=== PATIENT | female | born 1960 | race Caucasian/White ===

== ENCOUNTER → 2017-11-05 | Outpatient (CLI) | payer BC ==
[~2017-11-05] MED LIST: ATOR40TA70 PO; CHOL500061 PO; CIPR500T78 PO; CYAN250010 PO; FLUO40CA12 PO; LISI-552 PO; LYSI100014 PO; SITA1TBM7 PO; TURM538C PO
--- NOTE | 2017-11-06 10:24 | Diagnostic Imaging Report ---
EXAMINATION: Bilateral screening mammogram 2D views with tomosynthesis. The current study was also evaluated with a Computer Aided Detection (CAD) system. INDICATION: Screening. PERSONAL HISTORY: No current complaints stated on the questionnaire. COMPARISON: 07/21/2012. FINDINGS: The breasts are composed of scattered fibroglandular densities. There is no mass, architectural distortion, or suspicious cluster of calcifications seen. Allowing for technique and positional differences, no suspicious change is seen. IMPRESSION: No significant change. ACR BI-RADS Category 2: Benign findings. Result letter will be mailed to the patient. Note: At least 10% of breast cancer is not imaged by mammography. Dictated by: Dictated on workstation # [id number]
== END ==
LOC: RAD 13:28
PROVIDERS: ATTEND Family Medicine
DX: Z12.31 Encounter for screening mammogram for malignant neoplasm of breast (principal)
CPT/HCPCS: 77067

== ENCOUNTER 2017-11-06 05:32 | Outpatient (CLI) | payer BC ==
[~2017-11-06] VITALS: Ht 167.6 cm; Wt 127.0 kg
[~2017-11-06 05:32] MED LIST changes: -ATOR40TA70 PO; -CHOL500061 PO; -CYAN250010 PO; -FLUO40CA12 PO; -LISI-552 PO; -LYSI100014 PO; -SITA1TBM7 PO; -TURM538C PO
[2017-11-06] MEDS ORDERED: FLUO40CA12 PO (12:58)
[2017-11-06] MEDS ORDERED: CYAN250010 PO (12:58)
[2017-11-06] MEDS ORDERED: LISI-552 PO (12:58)
[2017-11-06] MEDS ORDERED: CHOL500061 PO (12:58)
[2017-11-06] MEDS ORDERED: TURM538C PO (12:58)
[2017-11-06] MEDS ORDERED: ATOR40TA70 PO (12:58)
[2017-11-06] MEDS ORDERED: LYSI100014 PO (12:58)
[2017-11-06] MEDS ORDERED: SITA1TBM7 PO (12:58)
== END 2017-11-06 13:02 ==
LOC: PREOP 05:32
PROVIDERS: ATTEND Surgery
DX: Z01.818 Encounter for other preprocedural examination (principal); Z12.11 Encounter for screening for malignant neoplasm of colon; Z80.0 Family history of malignant neoplasm of digestive organs

== ENCOUNTER 2017-11-13 09:53 | Day surgery (SDC) | payer BC ==
[~2017-11-13] VITALS: Ht 167.6 cm; Wt 127.0 kg
[~2017-11-13 09:53] MED LIST changes: +ATOR40TA70 PO; +CHOL500061 PO; +CYAN250010 PO; +FLUO40CA12 PO; +LISI-552 PO; +LYSI100014 PO; +SITA1TBM7 PO; +TURM538C PO
[2017-11-13 10:00] VITALS: BP 112/76
[2017-11-13] MEDS ORDERED: NS IV 500 ML 500 ML ONE (10:12)
[2017-11-13] MEDS ORDERED: NS IV 500 ML 500 ML IV PRN (10:27)
--- NOTE | 2017-11-13 10:29 | Conscious Sedation/ASA ---
Conscious Sedation Pre-Proced Time Reviewed: 10:15 ASA Class: 2 Airway Mallampati Classification: (cabazon appropriate class) I. II. III, IV Lungs Heart ASA score ASA 1: a normal healthy patient ASA 2: a patient with a mild systemic disease (mid diabetes, controlled hypertension, obesity ASA 3: a patient with a severe systemic disease that limits activity (angina , COPD, prior Myocardial infarction) ASA 4: a patient with an incapacitating disease that is a constant threat to life (CHF, renal failure) ASA 5: a moribund patient not expected to survive 24 hrs. (ruptured aneurysm) ASA 6: a declared brain patient whose organs are being harvested. For emergent operations, add the letter E after the classification Grade 2 Sedation Plan: Analgesia, Amnesia, Plan communicated to team members, Discussed options with patient/fam, Discussed risks with patient/fam Note The patient is an appropriate candidate to undergo the planned procedure, sedation, and anesthesia. The patient immediately re-assessed prior to indication. JENIFER ALLEN MD Nov 13, 2017 10:29 am
[2017-11-13] MEDS ORDERED: ACETAMINOPHEN 325 MG TABLET/CAPLET (TYLENOL) PO PRN (10:30)
[2017-11-13] MEDS: fentaNYL INJECTION 100 MCG/2 ML AMP IVP PRN ×4 (10:30→11:20)
[2017-11-13] MEDS ORDERED: LIDOCAINE JELLY 2% (XYLOCAINE) 5 ML TUBE MM PRN (10:30)
[2017-11-13] MEDS ORDERED: HYDROcodone/APAP 5 MG/325 MG (LORTAB) TAB PO PRN (10:30)
[2017-11-13] MEDS ORDERED: ONDANSETRON 4 MG/2 ML (SDV) Z0FRAN IV PRN (10:30)
[2017-11-13] MEDS ORDERED: morphine INJ 10 MG/ML 1ML (SYR OR VIAL) IV PRN (10:30)
--- NOTE | 2017-11-13 10:30 | Progress Note-Pre Operative ---
Pre-Operative Progress Note H&P Reviewed The H&P was reviewed, patient examined and no changes noted. Date Seen by Provider: Nov 13, 2017 Time Seen by Provider: 10:15 Date H&P Reviewed: Nov 13, 2017 Time H&P Reviewed: 10:15 Pre-Operative Diagnosis: family hx colon ca JENIFER ALLEN MD Nov 13, 2017 10:30 am
[2017-11-13] MEDS ORDERED: fentaNYL INJECTION 100 MCG/2 ML AMP ONE ×2 (10:59→11:22)
[2017-11-13] MEDS ORDERED: MIDAZOLAM 2 MG/2 ML (VERSED) VIAL ONE ×5 (10:59→11:26)
[2017-11-13] MEDS ORDERED: LIDOCAINE JELLY 2% (XYLOCAINE) 5 ML TUBE ONE (11:00)
[2017-11-13] MEDS: MIDAZOLAM 2 MG/2 ML (VERSED) VIAL IVP PRN ×5 (11:00→11:35)
[2017-11-13] MEDS ORDERED: ONDANSETRON 4 MG/2 ML (SDV) Z0FRAN ONE (11:39)
--- NOTE | 2017-11-13 11:48 | Progress Note-Post Operative ---
Post-Operative Progess Note Surgeon (s)/Sounding Device Operator (s) Surgeon JENIFER ALLEN MD Sounding Device Operator: none Pre-Operative Diagnosis family hx colon ca Post-Operative Diagnosis chronic stage 1 ext and int hemorrhoids. Procedure & Operative Findings Date of Procedure 11/13/17 Procedure Performed/Findings Colonoscopy. Anesthesia Type CS Estimated Blood Loss Estimated blood loss (mL): minimal Specimens/Packing Specimens Removed none JENIFER ALLEN MD Nov 13, 2017 11:48 am
--- NOTE | 2017-11-13 11:49 | Discharge Inst-Surgical ---
D/C Lap Instructions-TIFFANY Follow Up 5 yrs Activity as tolerated High Fiber Diet 25g or more per day Avoid Alcohol, Caffeine, Spicy [place] and Acid foods. Drink 64 fluid oz or more of fluids per day. Symptoms to Report: Fever over 101 degree F, Nausea/Vomiting If any problems/questions: Contact your physician or go to Emergency Room JENIFER ALLEN MD Nov 13, 2017 11:49 am
[2017-11-13 12:00] VITALS: BP 109/59
[2017-11-13 12:30] VITALS: BP 106/64
[2017-11-13 12:40] VITALS: BP 106/64
--- NOTE | 2017-11-13 20:43 | OPERATIVE REPORT ---
DATE OF SERVICE: 11/13/2017 ATTENDING PHYSICIAN: Dr. Ninfa Carter. PREOPERATIVE DIAGNOSIS: Family history of colon cancer. POSTOPERATIVE DIAGNOSIS: Chronic stage I external and internal hemorrhoids. The remainder of the rectum and colon were normal. PROCEDURE: Colonoscopy. SURGEON: Dr. Allen. ANESTHESIA: Conscious sedation. ESTIMATED BLOOD LOSS: Minimal. FINDINGS: Chronic stage I external and internal hemorrhoids. The remainder of the rectum and colon were normal. There were no polyps identified. DISPOSITION: The patient tolerated the procedure well. The patient local is a 57-year-old female in need of a follow up screening colonoscopy. Her last colonoscopy was in 2009 and she believes that to be normal. She does state a family history of colon cancer with her father being diagnosed with the disease. Her mother also had a history of pancreatic cancer. She states for the most part she is doing well with no major issues with diarrhea nor constipation as well as no red blood per rectum or any dark tarry stools. DESCRIPTION OF PROCEDURE: The patient was brought to the endoscopy suite, laid in the left lateral decubitus position. After adequate IV pain and sedating medications and conscious sedation anesthesia, a digital rectal examination was performed. Mild chronic stage I external and internal hemorrhoids were identified which were not actively edematous nor inflamed and no bleeding. Normal sphincter tone was felt and there were no palpable masses. The endoscope was then intubated to the anus and rectum and gently insufflated. The endoscope was then advanced through the valves of Caraballo and the rectum with no polyps or any neoplasms identified. The endoscope was then advanced through the sigmoid colon where no diverticulosis identified. We then advanced to the remainder of the descending, transverse and ascending colon to the cecum. These segments were normal. There were no polyps or any neoplasms identified throughout the colon or rectum. The endoscope was then slowly withdrawn when taking a second look and suctioning of residual air with no additional findings. The patient tolerated the procedure well. We will recommend continued medical management with a high fiber diet with at least 25 to 30 grams of fiber per day as well as at least 64 fluid ounces of water daily to promote soft stools on a daily basis. We will recommend a followup colonoscopy in 5 years. Job ID: [id number] DocumentID: [id number] Dictated Date: 11/13/2017 11:45:43 Windows Desktop Support Date: 11/13/2017 20:42:11 Dictated By: JENIFER ALLEN MD
--- OUTSIDE RECORDS SUMMARY | 2017-11-14 09:30 | XMS REPORT | Encounter Summary ---
Author Author [facility] Organization [facility] Address Unknown Phone Unavailable Care Team Providers Care Bench Assembler Battery Name Role Phone PCP Unavailable Reason for Visit * Reason Comments Ear Evaluation * Consult, Test & Treat (Routine) Status Reason Specialty Diagnoses / Referred By Referred To Procedures Contact Contact Authorized Otolaryngology Diagnoses Jameson Carter Keith A, MD Pressure in MD Ninfa [address] Ears, Hearing [address] [place] [address] rocedures [id number] Phone: NEW PATIENT [phone] Encounter Details Date Type Department Care Team Description 10/09/2017 Office Visit [facility] Selvin Barba MD Dysfunction of right Physicians - ENT [address] eustachian tube (Primary [address] Dx);Otitic barotrauma, [place] [address] [place] [address] initial encounter [phone] Social History Tobacco Use Types Packs/Day Years Used Date Former Smoker Cigarettes Quit: 10/09/1998 Smokeless Tobacco: Never Used Alcohol Use Drinks/Week oz/Week Comments Yes Sex Assigned at Date Recorded Not on file as of this encounter Last Filed Vital Signs Vital Sign Reading Time Taken Blood Pressure - - Pulse - - Temperature - - Respiratory Rate - - Oxygen Saturation - - Inhaled Oxygen - - Concentration Weight 124.7 kg (275 lb) 10/09/2017 3:09 PM 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 Height 170.2 cm (5' 7") 10/09/2017 3:09 PM LINING MECHANIC Body Mass Index 43.07 10/09/2017 3:09 PM LINING MECHANIC in this encounter Functional Status Functional Status Response Date of Assessment Does the patient have a hearing impairment: No 10/22/2016 Does the patient have a visual impairment: Yes 10/22/2016 Does the patient have impaired ambulation: No 10/22/2016 Does the patient have an activity of daily living No 10/22/2016 (ADL) impairment: Does the patient have an instrumental activity of No 10/22/2016 daily living (IADL) impairment: Cognitive Status Response Date of Assessment Does the patient have a cognitive impairment: No 10/22/2016 as of this encounter Instructions * Patient Instructions - Selvin Barba MD - 10/09/2017 3:15 PM LINING MECHANIC Should your symptoms persist after another 2-3 months, please contact our office for a visit with our neuro-otology team: Dr. Shaun Blanchard in this encounter Progress Notes * Selvin Barba MD - 10/09/2017 3:15 PM LINING MECHANIC Formatting of this note may be different from the original. Date of Service: 10/09/2017 Subjective: Мария Bliss is a 57 y.o. female. History of Present Illness In May drove to top of [email or web address] peak then back down and developed right ear pain and pressure and fever. Had oral prednisone and augmentin. Then cefdinir. Then a prednisone shot. Then another round of oral prednisone. She still has tinnitus and some difficulty hearing from her right ear. She went to her local ENT who recommended tubes. She has occasional crackling when blowing nose. She took sudafed for a flight and her ears were very crackly. She can pop both ears. Denies prior ear surgery/ infections. At outside ENT office they looked into back of nose and said it looks good. She tried valsalva, steroid sprays, zyrtec for ETD. Helped somewhat, but not completely back to baseline. 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 Мария Bliss has a past medical history of Arthritis; Cancer ( HCC); DM (diabetes mellitus) (HCC); Generalized headaches; High cholesterol; Hypertension; Hyperthyroidism; Seasonal allergic reaction; Sleep apnea (CPAP); and Tobacco abuse. She has a past surgical history that includes hysterectomy (2006); section (2002); sinus surgery (2012); tonsillectomy (1974); arthrs knee w/ meniscectomy med&lat w/shaving (Right, 08/30/2016) (right knee arthroscopy, partial lateral menisectomy, and chondroplasty. performed by Miguel Angel Samuel MD at [facility]IOP); and adenoidectomy (1973). Мария's family history includes Allergy-severe in her son; Asthma in her sister and son; Diabetes in her father; Hearing Loss in her father; High Cholesterol in her father; Hypertension in her mother. Social History Substance Use Topics Smoking status: Former Smoker Types: Cigarettes Quit date: 10/09/1998 Smokeless tobacco: Never Used Alcohol use Yes No Known Allergies Review of Systems Constitutional: Negative. HENT: Positive for postnasal drip, rhinorrhea, sinus pressure and tinnitus. Eyes: Positive for itching. Respiratory: Positive for apnea. Cardiovascular: Negative. Gastrointestinal: Negative. Endocrine: Negative. Genitourinary: Negative. Musculoskeletal: Positive for arthralgias, gait problem and joint swelling. Skin: Negative. Allergic/Immunologic: Negative. Hematological: Negative. Psychiatric/Behavioral: Negative. Objective: atorvastatin (LIPITOR) 40 mg tablet Take 40 mg by mouth daily. cholecalciferol (VITAMIN D-3) 400 unit tab Take 400 Units by mouth daily. cyanocobalamin(+) (VITAMIN B-12) 100 mcg tablet Take 100 mcg by mouth daily. FLUoxetine (PROZAC) 20 mg capsule Take 20 mg by mouth daily. lisinopril (PRINIVIL; ZESTRIL) 10 mg tablet Take 10 mg by mouth daily. Lysine (L-LYSINE) 500 mg cap Take 500 mg by mouth daily. turmeric root extract 500 mg cap Take 500 mg by mouth daily. Vitals: 10/09/17 1509 Weight: 124.7 kg (275 lb) Height: 170.2 cm (67") Body mass index is 43.07 kg/(m^2). Physical Exam General appearance: Мария is in no distress and is alert and oriented. Communication ability: communicates by voice, normal quality Inspection: normocephalic, no scars, lesions, or masses External ear: normal, no lesions or deformities Otoscopic: canals clear, tympanic membranes intact, no fluid- able to move both ear drums with valsalva Hearing: grossly intact Lips/teeth/gums: normal dentition, no gingival inflammation, no lip lesions Oropharynx: tongue normal, posterior pharynx without erythema or exudate Pharynx wall/sinus: no saliva pooling, asymmetry, or lesions Neck: supple, no masses, trachea midline. No cervical adenopathy, thyromegaly, or parotid masses. External nose: normal, no lesions or deformities Nasal: mucosa, septum, and turbinates normal Eyes: Extraocular motion is normal. No diplopia. Pupils are equal and reactive. Cranial nerves II-XII are intact. AD- type As or B tymp and 5-15 db ABG resulting in a mild conductive loss. - normal PTAs and WRS excellent AU. Harrison to right; Rinner air > bone AU Assessment and Plan: 57 yo female with eustachian tube dysfunction and otologic barotrauma. She is still slowly improving since her initial insult and we would recommend not putting in tube today as she does not have fluid and continues to improve. We would like her to continue ETD therapy and follow up in 4 months if symptoms persist or sooner if needed. ATTESTATION I personally performed the hercules portions of the E/M visit, discussed case with resident and concur with resident documentation of history, physical exam, assessment, and treatment plan unless otherwise noted. Staff name: Selvin Barba MD Date: 10/16/2017 in this encounter Plan of Treatment Not on fileas of this encounter Visit Diagnoses Diagnosis Dysfunction of right eustachian tube - Primary Dysfunction of Eustachian tube Otitic barotrauma, initial encounter in this encounter
--- OUTSIDE RECORDS SUMMARY | 2017-11-14 09:30 | XMS REPORT | Encounter Summary ---
Author Author [facility] Organization [facility] Address Unknown Phone Unavailable Care Team Providers Care Sales Agent Food Vending Service Name Role Phone PCP Unavailable Reason for Visit * Reason Comments Ear Evaluation * Consult, Test & Treat (Routine) Status Reason Specialty Diagnoses / Referred By Referred To Procedures Contact Contact Authorized Otolaryngology Diagnoses Geoffrey Carter Becky, Jenae in MD NALDO Ocasio Ears, Hearing [address] Loss [facility] [address] [place], [place] rocedures [id number] AUDIO TESTING Phone: Phone: PATIENT [phone] Fax: Encounter Details Date Type Department Care Team Description 10/09/2017 Clinical [facility] Mariel Hale AUD Conductive hearing loss Support Physicians - ENT [address] of right ear with [address] E[address] CLINIC [address] [place] [address] [place] [address] left ear [phone] Social History Tobacco Use Types Packs/Day Years Used Date Former Smoker Cigarettes Quit: 10/09/1998 Smokeless Tobacco: Never Used Alcohol Use Drinks/Week oz/Week Comments Yes Sex Assigned at Date Recorded Not on file as of this encounter Functional Status Functional Status Response [...] impairment: No 10/22/2016 as of this encounter Plan of Treatment Not on fileas of this encounter Procedures Procedure Name Priority Date/Time Associated Diagnosis Comments AUDIOMETRY WITH Routine 10/09/2017 TYMPANOMETRY 12:00 AM 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
--- OUTSIDE RECORDS SUMMARY | 2017-11-14 09:30 | XMS REPORT | Continuity of Care Document ---
Author Author [facility] Address Unknown Phone Unavailable Allergies Active Description Code Type Severity Reaction Onset Reported/Identified Relationship to Patient Clinical Status Yes No Known Drug Allergies [id number] Drug Allergy Unknown N/A 11/06/2017 Medications There is no data. Problems Date Dx Coded Attending Type Code Diagnosis Diagnosed By 2013 ERIC CASSIDY DO V04.81 FLU SHOT 2013 ERIC CASSIDY DO V04.81 FLU SHOT 03/28/2014 PATRICIA MCCANN, LU Dumont Ot 599.0 URIN TRACT INFECTION NOS 03/28/2014 LU GOMEZ MD Ot 780.4 DIZZINESS AND GIDDINESS 11/02/2014 MICHAEL GONZALEZ DO Ot 327.23 OBSTRUCTIVE SLEEP APNEA (ADULT) (PEDIATR 10/12/2015 PAT UNDERWOOD Ot M25.561 06/24/2017 Ot V76.12 OTH SCREEN MAMMO-MALIGN NEOPLASM OF [place] 06/24/2017 Ot 473.9 CHRONIC SINUSITIS NOS 06/24/2017 Ot V72.84 EXAM PRE- OPERATIVE NOS 06/24/2017 PAT UNDERWOOD Ot M25.561 PAIN IN RIGHT KNEE 11/06/2017 MICHAEL GONZALEZ DO Ot Z12.31 ENCNTR SCREEN MAMMOGRAM FOR MALIGNANT NE 11/11/2017 JENIFER ALLEN MD Ot Z01.818 ENCOUNTER FOR OTHER PREPROCEDURAL EXAMIN 11/11/2017 JENIFER ALLEN MD Ot Z12.11 ENCOUNTER FOR SCREENING FOR MALIGNANT NE 11/11/2017 JENIFER ALLEN MD Ot Z80.0 FAMILY HISTORY OF MALIGNANT NEOPLASM OF 11/13/2017 MICHAEL GONZALEZ DO Ot Z12.31 ENCNTR SCREEN MAMMOGRAM FOR MALIGNANT NE Procedures There is no data. Results There is no data. Encounters ACCT No. Visit Date/Time Discharge Status Pt. Type Provider Facility Loc./Unit Complaint [id number] 10/06/2014 17:25:00 10/06/2014 23:59:59 CLS Outpatient ERIC CASSIDY DO [id number] 2013 16:24:00 2013 23:59:59 CLS Outpatient ERIC CASSIDY DO [id number] 11/13/2017 09:53:00 11/13/2017 12:40:00 DIS Outpatient JENIFER ALLEN MD [facility] ENDO FAMILY HX OF COLON CA [id number] 11/06/2017 05:32:00 11/06/2017 13:02:00 DIS Outpatient JENIFER ALLEN MD [facility] PREOP COLONOSCOPY [id number] 11/05/2017 13:28:00 11/05/2017 23:59:59 CLS Outpatient MICHAEL GONZALEZ DO [facility] RAD SCREENING [id number] 09/30/2015 09:22:00 09/30/2015 23:59:59 CLS Outpatient PAT UNDERWOOD [facility] RAD RT KNEE PAIN, [id number] 11/01/2014 19:55:00 11/02/2014 06:50:00 DIS Outpatient MICHAEL GONZALEZ DO [facility] SLEEP KASSY,SNORING [id number] 03/28/2014 17:59:00 03/28/2014 20:45:00 DIS Emergency LU GOMEZ MD [facility] ER DIZZINESS [id number] 03/02/2013 14:41:00 Document Registration [id number] 01/30/2013 16:03:00 Document Registration [id number] 07/21/2012 07:37:00 Document Registration
--- OUTSIDE RECORDS SUMMARY | 2017-11-14 09:30 | XMS REPORT ---
Author Author ERIC CASSIDY [facility] Address Unknown Phone Unavailable Care Team Providers Care Drone Pilot Name Role Phone ERIC CASSIDY CP Unavailable Allergies No Known Allergies Problems Problem Type Condition Code Onset Dates Condition Status Assessment Encounter for immunization Z23 Active Problem Need for prophylactic vaccination and inoculation, Influenza V04.81 Active Medications No Known Medications Procedures Procedure Coding System Code Date SINGLE IMMUNIZATION ADMIN CPT-4 90202 Sep 19, 2016 FLUARIX QUAD P-FREE 3 AND UP .50 2015 CPT-4 77138 Sep 19, 2016 Results No Known Results Immunizations Vaccine Administration Date FLUARIX QUAD P-FREE 3 AND UP .50 2015Sep 19, 2016 Summary Purpose [employer] Submission
--- OUTSIDE RECORDS SUMMARY | 2017-11-14 09:30 | XMS REPORT | Continuity of Care Document ---
Author Author [facility] Organization [facility] Address Unknown Phone Unavailable Care Team Providers Care Account Services Manager Name Role Phone [employer] Unavailable Unavailable Problems Medications Allergies, Adverse Reactions, Alerts Immunizations Results Vital Signs Encounters Location Location Details Encounter Type Encounter Number Reason For Visit Attending Provider ADM Date DC Date Status Source OUTPATIENT [id number] FLEX GIFFORD 10/17/20152014 Active [facility] O 10/09/2017 Active [facility] Procedures Plan of Care Social History Assessment and Plan Family History Value Date Source Advance Directives Order Name Results Value Date Source
--- OUTSIDE RECORDS SUMMARY | 2017-11-14 09:30 | XMS REPORT | Clinical Summary ---
Author Author [facility] Organization [facility] Address Unknown Phone Unavailable Care Team Providers Care Loan Assistant Name Role Phone PCP Unavailable Source Comments Some departments are not documenting in the electronic medical record. If you do not see the information that you expected, contact Release of Information in the Health Information Management department at [phone] for further assistance in locating additional records.[facility] Allergies No Known Allergies Current Medications Prescription Sig. Disp. Refills Start End Date Status Date atorvastatin (LIPITOR) 40 Take 40 mg by mouth Active mg tablet daily. FLUoxetine (PROZAC) 20 mg Take 20 mg by mouth Active capsule daily. Lysine (L-LYSINE) 500 mg Take 500 mg by mouth Active cap daily. turmeric root extract 500 Take 500 mg by mouth Active mg cap daily. lisinopril (PRINIVIL; Take 10 mg by mouth Active ZESTRIL) 10 mg tablet daily. cyanocobalamin(+) Take 100 mcg by mouth Active (VITAMIN B-12) 100 mcg daily. tablet cholecalciferol (VITAMIN Take 400 Units by mouth Active D-3) 400 unit tab daily. Active Problems Problem Noted Date Lateral meniscus tear 03/19/2016 Encounters Date Type Specialty Care Team Description 10/09/2017 Office Visit Otolaryngology Selvin Barba MD Dysfunction of right eustachian tube (Primary Dx);Otitic barotrauma, initial encounter 10/09/2017 Clinical Otolaryngology Mariel Hale AUD Conductive hearing loss Support of right ear with unrestricted hearing of left ear from Last 3 Months Family History Medical History Relation Name Comments Diabetes Father Hearing Loss Father High Cholesterol Father Hypertension Mother Asthma Sister Allergy-severe Son Asthma Son Relation Name Status Comments Father Alive Mother Sister Alive Son Alive Social History Tobacco Use Types Packs/Day Years Used Date Former Smoker Cigarettes Quit: 10/09/1998 Smokeless Tobacco: Never Used Alcohol Use Drinks/Week oz/Week Comments Yes Sex Assigned at Date Recorded Not on file Last Filed Vital Signs Vital Sign Reading Time Taken Blood Pressure 136/80 10/22/2016 11:57 AM FURNITURE INSPECTOR Pulse 79 10/22/2016 11:57 AM FURNITURE INSPECTOR Temperature 36.4 C (97.5 F) 08/30/2016 12:00 PM CDT Respiratory Rate 15 10/22/2016 11:57 AM FURNITURE INSPECTOR Oxygen Saturation 97% 10/22/2016 11:57 AM FURNITURE INSPECTOR Inhaled Oxygen - - Concentration Weight 124.7 kg (275 lb) 10/09/2017 3:09 PM FURNITURE INSPECTOR Height 170.2 cm (5' 7") 10/09/2017 3:09 PM FURNITURE INSPECTOR Body Mass Index 43.07 10/09/2017 3:09 PM FURNITURE INSPECTOR Plan of Treatment Health Maintenance Due Date Last Done Comments HEPATITIS C SCREENING 1962 PHYSICAL (COMPREHENSIVE) 1969 EXAM PERTUSSIS VACCINE 1973 TETANUS VACCINE 1979 CERVICAL CANCER SCREENING 1992 BREAST CANCER SCREENING 2002 COLORECTAL CANCER 2012 SCREENING INFLUENZA VACCINE 06/25/2017 Procedures Procedure Name Priority Date/Time Associated Diagnosis Comments AUDIOMETRY WITH Routine 10/09/2017 TYMPANOMETRY 12:00 AM FURNITURE INSPECTOR from Last 3 Months Results * AUDIOMETRY WITH TYMPANOMETRY (10/09/2017) Specimen Performing Laboratory IN CLINIC from Last 3 Months
== END 2017-11-13 12:40 | disposition home or self-care (01) ==
LOC: ENDO 09:53
PROVIDERS: ATTEND Surgery
DX: Z12.11 Encounter for screening for malignant neoplasm of colon (principal); Z80.0 Family history of malignant neoplasm of digestive organs; K64.0 First degree hemorrhoids; Z86.010 Personal history of colon polyps; Z79.899 Other long term (current) drug therapy; Z87.891 Personal history of nicotine dependence

== ENCOUNTER → 2019-11-06 | Outpatient (CLI) | payer BC ==
--- NOTE | 2019-11-09 09:32 | Diagnostic Imaging Report ---
INDICATION: Routine screening. Comparison is made with prior mammogram from 11/05/2017. 2-D and 3-D bilateral screening mammography was performed with CAD. Scattered fibroglandular densities are identified bilaterally. The parenchymal pattern is stable. No mass or malignant appearing microcalcifications are seen. Axillae are unremarkable. IMPRESSION: BI-RADS Category 1 No mammographic features suspicious for malignancy are identified. ACR BI-RADS Category 1: Negative. Result letter will be mailed to the patient. Note: At least 10% of breast cancer is not imaged by mammography. Dictated by: Dictated on workstation # [id number]
== END ==
LOC: RAD 13:57
PROVIDERS: ATTEND Family Medicine
DX: Z12.31 Encounter for screening mammogram for malignant neoplasm of breast (principal)
CPT/HCPCS: 77067

== ENCOUNTER → 2021-08-31 | Outpatient (CLI) | payer BC ==
[~2021-08-31] MED LIST changes: -LISI-552 PO; +LISI20TA26 PO
== END ==
LOC: RAD 15:45
PROVIDERS: ATTEND Family Medicine
DX: Z12.31 Encounter for screening mammogram for malignant neoplasm of breast (principal)
CPT/HCPCS: 77063; 77067

== ENCOUNTER 2022-10-15 05:34 | Outpatient (CLI) | payer OTHER ==
[~2022-10-15] VITALS: Ht 170.2 cm; Wt 124.7 kg
[2022-10-15] MEDS ORDERED: TOLT2CAP21 PO (12:48)
[2022-10-15] MEDS ORDERED: TIRZ2.5P SQ (12:48)
[2022-10-15] MEDS ORDERED: METF-399 PO (12:48)
[2022-10-15] MEDS ORDERED: BUPR150T24 PO (12:48)
== END 2022-10-15 12:57 | disposition home or self-care (01) ==
LOC: PREOP 05:34
PROVIDERS: ATTEND Surgery
DX: Z01.818 Encounter for other preprocedural examination (principal)

== ENCOUNTER 2022-10-24 09:34 | Day surgery (SDC) | payer BC, OTHER ==
[~2022-10-24] VITALS: Ht 170 cm; Wt 124.7 kg
[~2022-10-24 09:34] MED LIST changes: +BUPR150T24 PO; +METF-399 PO; +TIRZ2.5P SQ; +TOLT2CAP21 PO
[2022-10-24] MEDS ORDERED: LACTATED RINGERS 1,000 ML IV STA (09:36)
[2022-10-24] MEDS ORDERED: LIDOCAINE JELLY 2% 6 ML SYRINGE MM PRN (09:45)
[2022-10-24 09:54] VITALS: BP 119/68
[2022-10-24] MEDS ORDERED: PROPOFOL INJECTION 50 ML IV ONE (11:01)
[2022-10-24] MEDS ORDERED: MIDAZOLAM 2 MG/2 ML (VERSED) VIAL ONE (11:01)
--- NOTE | 2022-10-24 11:08 | Progress Note-Pre Operative ---
Pre-Operative Progress Note Date of Available H&P: Oct 24, 2022 Date H&P Reviewed: Oct 24, 2022 Time H&P Reviewed: 10:00 History & Physical: No changes noted Pre-Operative Diagnosis: screening, family hx JENIFER ALLEN MD Oct 24, 2022 11:08
--- NOTE | 2022-10-24 11:10 | Discharge Inst-Surgical ---
D/C Lap Instructions-TIFFANY Follow Up Activity as tolerated High Fiber Diet 25g or more per day Avoid Alcohol, Caffeine, Spicy [place] and Acid foods. Drink 64 fluid oz or more of fluids per day. Symptoms to Report: Fever over 101 degree F, Nausea/Vomiting If any problems/questions: Contact your physician or go to Emergency Room JENIFER ALLEN MD Oct 24, 2022 11:09
[2022-10-24] MEDS ORDERED: ONDANSETRON 4 MG (ZOFRAN) ORAL DISSOLVE TAB PO PRN (11:15)
[2022-10-24] MEDS ORDERED: ONDANSETRON 4 MG/2 ML (SDV) Z0FRAN IVP PRN (11:15)
[2022-10-24 11:35] VITALS: BP 109/56
[2022-10-24 11:40] VITALS: BP 101/57
--- NOTE | 2022-10-24 11:41 | Progress Note-Post Operative ---
Post-Operative Progess Note Surgeon (s)/Photoengraving Proofer (s) Surgeon JENIFER ALLEN MD Photoengraving Proofer: none Pre-Operative Diagnosis screening, family hx Post-Operative Diagnosis mild chronic stage 2 ext and int hemorrhoids. Procedure & Operative Findings Date of Procedure 10/24/22 Procedure Performed/Findings colonoscopy Anesthesia Type mac Estimated Blood Loss Estimated blood loss (mL): minimal Specimens/Packing Specimens Removed none JENIFER ALLEN MD Oct 24, 2022 11:41
[2022-10-24 11:55] VITALS: BP 100/60
[2022-10-24 12:06] VITALS: BP 100/60
--- NOTE | 2022-10-24 12:17 | Anesthesia-General Post-Op ---
MAC Patient Condition Mental Status/LOC: Same as Preop Cardiovascular: Satisfactory Nausea/Vomiting: Absent Respiratory: Satisfactory Pain: Controlled Complications: Absent Post Op Complications Complications None Follow Up Care/Instructions Patient Instructions None needed. Anesthesiology Discharge Order Discharge Order Patient is doing well, no complaints, stable vital signs, no apparent adverse anesthesia problems. No complications reported per nursing. ADONIS CASTILLO CRNA Oct 24, 2022 12:17
--- NOTE | 2022-10-24 20:57 | OPERATIVE REPORT ---
DATE OF SERVICE: 10/24/2022 ATTENDING PRIMARY CARE PHYSICIAN: Dr. Ninfa Carter. PREOPERATIVE DIAGNOSIS: Screening colonoscopy with family history of colon cancer. POSTOPERATIVE DIAGNOSIS: Mild chronic stage II external and internal hemorrhoids. PROCEDURE: Colonoscopy. SURGEON: Dr. Allen. ANESTHESIA: Monitored anesthesia care. ESTIMATED BLOOD LOSS: Minimal. FINDINGS: Mild chronic stage II external and internal hemorrhoids. DISPOSITION: The patient tolerated the procedure well. INDICATIONS: The patient is a 62-year-old female who was referred over to us for a screening colonoscopy. She has had several colonoscopies in the past, which for the most part been normal. She does report small benign polyps on occasion. She does not report any major issues with diarrhea, no constipation as well as no red blood per rectum, nor any dark tarry stools. She does have a family history of colon cancer with her father being diagnosed with the disease. DESCRIPTION OF PROCEDURE: The patient was brought to the endoscopy suite and laid in left lateral decubitus position. Digital rectal examination was performed which revealed mild chronic stage II, external, internal hemorrhoids, not actively edematous nor inflamed with no bleeding. Normal sphincter tone was felt and there were no palpable masses. The endoscope was then intubated into the anus, rectum and gently insufflated. The endoscope was then advanced to the valves of [place] of the rectum with no polyps or any neoplasms identified. Due to sigmoid colon, no diverticulosis identified. The endoscope was then advanced through the remainder of the descending, transverse and ascending colon to the cecum, which were normal. There were no polyps or any neoplasms identified throughout the colon or rectum. The endoscope was then slowly withdrawn while taking a second look and suctioning of residual air with no additional findings. The patient tolerated the procedure well. We will recommend continued medical management with a high-fiber diet with a fiber supplement, which showed equal or exceed 30 grams daily as well as at least 64 fluid ounces of water daily to promote soft consistency stools on a daily basis. Due to her first-degree family history of colon cancer, we will recommend a followup colonoscopy approximately five years. Job ID: [id number] DocumentID: [id number] Dictated Date: 10/24/2022 11:34:24 Broke Man Date: 10/24/2022 20:55:00 Dictated By: JENIFER ALLEN MD
== END 2022-10-24 12:06 | disposition home or self-care (01) ==
LOC: ENDO 09:34
PROVIDERS: ATTEND Surgery
DX: Z12.11 Encounter for screening for malignant neoplasm of colon (principal); Z80.0 Family history of malignant neoplasm of digestive organs; K64.1 Second degree hemorrhoids; K64.4 Residual hemorrhoidal skin tags; Z86.010 Personal history of colon polyps; E11.9 Type 2 diabetes mellitus without complications; Z79.84 Long term (current) use of oral hypoglycemic drugs; E66.01 Morbid (severe) obesity due to excess calories; Z68.41 Body mass index [BMI] 40.0-44.9, adult; G47.33 Obstructive sleep apnea (adult) (pediatric); Z87.891 Personal history of nicotine dependence

== ENCOUNTER 2023-03-12 14:09 | Emergency (ER) | payer OTHER ==
[~2023-03-12] VITALS: Ht 170 cm; Wt 118.8 kg
[2023-03-12] MEDS ORDERED: NS IV 1000 ML 1,000 ML IV STA (14:50)
--- NOTE | 2023-03-12 14:58 | ED Abdominal Pain ---
General Chief Complaint: Abdominal/GI Problems Stated Complaint: NAUSEA | CRAMPING | DIARRHEA Nursing Triage Note: PT PRESENTS TO ED WITH C/O EPIGASTRIC PAIN, NAUSEA, DIARRHEA, DIAPHORESIS, LIGHTHEADEDNESS SINCE SATURDAY. Source of Information: Patient Exam Limitations: No Limitations History of Present Illness Date Seen by Provider: Mar 12, 2023 Time Seen by Provider: 14:53 Initial Comments Patient is a 62-year-old female who presents the ED with epigastric pain described as crampy and intermittent since this past Saturday. Nausea diarrhea diaphoresis lightheadedness since this past Saturday. She states this all started after a Ozempic injection. Started having cramping with several bouts of diarrhea. Reports mucus without any hematochezia . nausea without vomiting. She has as crampy sharp type pain in her upper abdomen. Decreased appetite. Saturday started feeling extremely lightheaded and sweaty. She denies of any specific chest pain, cough or shortness of breath. Denies history of coronary artery disease, CHF, COPD or asthma. She states her started vomiting just right before arrival. Denies of any fever but has felt feverish. She states her mouth feels dry she feels dehydrated. Patient denies dysuria, hematuria, headache, dizziness. She does report a history of Allergies and Home Medications Allergies Coded Allergies: No Known Drug Allergies (Unverified , 11/06/17) Patient Home Medication List Home Medication List Reviewed: Yes Atorvastatin Calcium (Atorvastatin Calcium) 40 Mg Tablet, 40 MG PO DAILY, (Reported) Entered as Reported by: LAURA WEBER on 11/06/17 1258 Bupropion HCl (Bupropion Xl) 150 Mg Tab.er.24h, 150 MG PO DAILY, (Reported) Entered as Reported by: BHARTI FORBES on 10/15/22 1248 Cholecalciferol (Vitamin D3) (Vitamin D3) 5,000 Unit Tab.rapdis, 5,000 UNIT PO DAILY, (Reported) Entered as Reported by: LAURA WEBER on 11/06/17 1258 Cyanocobalamin (Vitamin B-12) (Vitamin B12) 2,500 Mcg Tablet, 2,500 MCG PO DAILY, (Reported) Entered as Reported by: LAURA WEBER on 11/06/17 1258 Fluoxetine HCl (Prozac) 40 Mg Capsule, 40 MG PO DAILY, (Reported) Entered as Reported by: LAURA WEBER on 11/06/17 1258 Lisinopril (Lisinopril) 20 Mg Tablet, 30 MG PO DAILY, (Reported) Entered as Reported by: LAURA WEBER on 11/06/17 1258 Metformin HCl (Metformin HCl) 1,000 Mg Tablet, 1,000 MG PO DAILY, (Reported) Entered as Reported by: BHARTI FORBES on 10/15/22 1248 Ondansetron (Ondansetron Odt) 4 Mg Tab.rapdis, 4 MG SL Q4H PRN for NAUSEA/VOMITING Prescribed by: ARIANNE VIVEROS on 03/12/23 1642 Tirzepatide (Mounjaro) 2.5 Mg/0.5 Ml Pen.injctr, 2.5 MG SQ WEEK, (Reported) Entered as Reported by: BHARTI FORBES on 10/15/22 1248 Tolterodine Tartrate (Tolterodine Tartrate ER) 2 Mg Cap.er.24h, 2 MG PO DAILY, (Reported) Entered as Reported by: BHARTI FORBES on 10/15/22 1248 Turmeric Root Extract (Turmeric) 538 Mg Capsule, 538 MG PO DAILY, (Reported) Entered as Reported by: LAURA WEBER on 11/06/17 1258 Review of Systems Review of Systems Constitutional: chills, diaphoresis, malaise, weakness EENTM: No Eye Pain Respiratory: Denies Cough, Denies Orthopnea Cardiovascular: Denies Chest Pain Gastrointestinal: Abdominal Pain, Diarrhea, Nausea; Denies Vomiting Genitourinary: Denies Burning, Denies Discharge Musculoskeletal: No back pain, No joint pain, No joint swelling, No muscle pain Skin: No change in color, No change in hair/nails Endocrine: Denies Excessive Sweating, Denies Flushing All Other Systems Reviewed Negative Unless Noted: Yes Past Wpoglej-Pizjdg-Fbbilt Hx Patient Social History Tobacco Use?: No Substance use?: No Alcohol Use?: No Pt feels they are or have been: No Immunizations Up To Date Influenza Vaccine Up-to-Date: Yes; Up-to-Date First/Initial COVID19 Vaccinat: YES Second COVID19 Vaccination Vahe: YES Third COVID19 Vaccination Date: YES Seasonal Allergies Seasonal Allergies: Yes (MILD) Past Medical History Surgeries: Yes Section, Hysterectomy, Orthopedic, Tonsillectomy Respiratory: Yes Sleep Apnea Currently Using CPAP: Yes Cardiac: Yes Heart Murmur, High Cholesterol, Hypertension Neurological: No Reproductive Disorders: No 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 Sexually Transmitted Disease: No HIV/AIDS: No Genitourinary: No Gastrointestinal: Yes Gastroesophageal Reflux Musculoskeletal: Yes (R KNEE) Arthritis Endocrine: Yes Diabetes, Non-Insulin dep HEENT: No Loss of Vision: Bilateral Hearing Impairment: Denies Cancer: Yes Skin Psychosocial: Yes Anxiety, Depression Integumentary: Yes Eczema Blood Disorders: No Adverse Reaction/Blood Tranf: No (N/A) Family Medical History Colon cancer Physical Exam Vital Signs Vital Signs - First Documented 03/12/23 14:45 Pulse 70 Resp 18 B/P (MAP) 117/60 (79) Pulse Ox 98 O2 Delivery Room Air Capillary Refill : Height/Weight/BMI Height: 5'6.00" Weight: 280lbs. 0.0oz. 127.541580xp; 41.00 BMI Method:Stated General Appearance: WD/WN, no apparent distress HEENT: PERRL/EOMI, normal ENT inspection, TMs normal, pharynx normal Neck: non-tender, full range of motion, supple Respiratory: chest non-tender, lungs clear, normal breath sounds, no respi ratory distress, no accessory muscle use Cardiovascular: regular rate, rhythm, no edema, no gallop, no JVD Gastrointestinal: normal bowel sounds, soft, no organomegaly, tenderness (EPIgastric) Extremities: normal range of motion, non-tender, normal inspection, no pedal edema Back: normal inspection, no CVA tenderness, no vertebral tenderness Neurologic/Psychiatric: breastfeeding educator II-XII nml as tested, no motor/sensory deficits, alert, normal mood/affect, oriented x 3 Skin: normal color, warm/dry Progress/Results/Core Measures Results/Orders Lab Results Laboratory Tests Test 03/12/23 14:55 03/12/23 15:28 Range/Units White Blood Count 12.5 H 4.3-11.0 10^3/uL Red Blood Count 4.94 3.80-5.11 10^6/uL Hemoglobin 15.1 11.5-16.0 g/dL Hematocrit 45 35-52 % Mean Corpuscular Volume 91 80-99 fL Mean Corpuscular Hemoglobin 31 25-34 pg Mean Corpuscular Hemoglobin Concent 34 32-36 g/dL Red Cell Distribution Width 12.9 10.0-14.5 % Platelet Count 366 130-400 10^3/uL Mean Platelet Volume 9.3 9.0-12.2 fL Immature Granulocyte % (Auto) 0 % Neutrophils (%) (Auto) 74 42-75 % Lymphocytes (%) (Auto) 19 12-44 % Monocytes (%) (Auto) 6 0-12 % Eosinophils (%) (Auto) 1 0-10 % Basophils (%) (Auto) 0 0-10 % Neutrophils # (Auto) 9.2 H 1.8-7.8 10^3/uL Lymphocytes # (Auto) 2.4 1.0-4.0 10^3/uL Monocytes # (Auto) 0.7 0.0-1.0 10^3/uL Eosinophils # (Auto) 0.1 0.0-0.3 10^3/uL Basophils # (Auto) 0.0 0.0-0.1 10^3/uL Immature Granulocyte # (Auto) 0.0 0.0-0.1 10^3/uL Sodium Level 140 135-145 MMOL/L Potassium Level 3.8 3.6-5.0 MMOL/L Chloride Level 105 98-107 MMOL/L Carbon Dioxide Level 24 21-32 MMOL/L Anion Gap 11 5-14 MMOL/L Blood Urea Nitrogen 14 7-18 MG/DL Creatinine 0.83 0.60-1.30 MG/DL Estimat Glomerular Filtration Rate 81 BUN/Creatinine Ratio 17 Glucose Level 129 H 70-105 MG/DL Calcium Level 9.2 8.5-10.1 MG/DL Corrected Calcium 9.4 8.5-10.1 MG/DL Total Bilirubin 0.4 0.1-1.0 MG/DL Aspartate Amino Transf (AST/SGOT) 12 5-34 U/L Alanine Aminotransferase (ALT/SGPT) 18 0-55 U/L Alkaline Phosphatase 117 40-136 U/L Troponin I < 0.028 <0.028 NG/ML Total Protein 6.8 6.4-8.2 GM/DL Albumin 3.8 3.2-4.5 GM/DL Lipase 17 8-78 U/L Urine Color YELLOW Urine Clarity CLOUDY Urine pH 6.0 5-9 Urine Specific [place] >=1.030 1.016-1.022 Urine Protein NEGATIVE NEGATIVE Urine Glucose (UA) NEGATIVE NEGATIVE Urine Ketones NEGATIVE NEGATIVE Urine Nitrite NEGATIVE NEGATIVE Urine Bilirubin NEGATIVE NEGATIVE Urine Urobilinogen 0.2 < = 1.0 MG/DL Urine Leukocyte Esterase TRACE H NEGATIVE Urine RBC (Auto) NEGATIVE NEGATIVE Urine RBC 0-2 /HPF Urine WBC 5-10 H /HPF Urine Squamous Epithelial Cells 25-50 H /HPF Urine Crystals PRESENT H /LPF Urine Amorphous Sediment MOD ANGELO URATES H /LPF Urine Bacteria FEW H /HPF Urine Casts NONE /LPF Urine Mucus LARGE H /LPF Urine Culture Indicated NO My Orders Orders - SEDA JONES Cbc With Automated Diff (03/12/23 14:50) Comprehensive Metabolic Panel (03/12/23 14:50) Lipase (03/12/23 14:50) Troponin I [place] (03/12/23 14:50) Ekg Tracing (03/12/23 14:50) Ua Culture If Indicated (03/12/23 14:50) Ns Iv 1000 Ml (Sodium Chloride 0.9%) (03/12/23 14:50) Ondansetron Injection (Zofran Injectio (03/12/23 15:00) Ct Abdomen/Pelvis W (03/12/23 15:11) Iohexol Injection (Omnipaque 350 Mg/Ml 1 (03/12/23 15:45) Received Contrast (Hold Metformin- Contr (03/12/23 15:45) Ns (Ivpb) (Sodium Chloride 0.9% Ivpb Bag (03/12/23 15:45) Medications Given in ED Current Medications Medications Dose Ordered Sig/Navi Route Start Time Stop Time Status Last Admin Dose Admin Iohexol 100 ml ONCE ONCE IV 03/12/23 15:45 03/12/23 15:46 DC 03/12/23 16:09 100 ML Ondansetron HCl 4 mg ONCE ONCE IVP 03/12/23 15:00 03/12/23 15:01 DC 03/12/23 15:13 4 MG Sodium Chloride 100 ml ONCE ONCE IV 03/12/23 15:45 03/12/23 15:46 DC 03/12/23 16:09 80 ML Vital Signs/I&O 03/12/23 03/12/23 14:45 16:46 Pulse 70 68 Resp 18 15 B/P (MAP) 117/60 (79) 111/74 Pulse Ox 98 96 O2 Delivery Room Air Room Air Blood Pressure Mean: 79 Departure Communication (PCP) Reviewed previous ER visits, H&P, lab testing. Patient presents to ED with up per abdominal pain diarrhea not feeling well since receiving a Ozempic injection on saturday. Symptoms started Saturday. Symtpoms worse today with body aches, abdominal pain, feeling of wanting to pass out. Nausea with diarrhea 4-5 episodes today. Denies of any specific chest pain or shortness of breath. Pain in her upper abdomen with tenderness. Due to location of pain. EKG, troponin was added. EKG showed sinus rhythm without evidence of ST elevation or depression. Troponin negative. CBC, and CMP grossly unremarkable besides a white blood count of 12.5. Patient vital signs stable. She does not appear toxic or septic. Urinalysis was negative for urinary tract infection. Appears contaminated with squamous cells, white blood cells and bacteria. Denies of any urinary symptoms. She was given Zofran and a liter of fluid with improvement of her symptoms. Denies of any recent antibiotic use or travels. Denies of any bloody stools. This does not appear to be bacterial. Due to location of pain rule out other potential etiologies such as colitis, acute cholecystitis, duodenitis. CT abdomen pelvis was ordered and was negative for acute abnormality. Normal liver enzymes, lipase. Patient cardiac work-up unremarkable. Stable vital signs. Patient will be discharged at this time recommending oral hydration. Discharge with oral Zofran. Patient symptoms appear to be viral in nature. continue monitoring symptoms. If diarrhea worsens with bloody stools, increasing abdominal pain or fever to return back to ED . Will likely need stool cultures at that time. Discussed Tums, PPI as she may have some form of gastritis due to location of pain. Currently pain-free. Discussed clear liquids over the next 2 days and and then moved to more of a bland diet. Follow-up with your PCP in 2 to 3 days for reevaluation. Impression Primary Impression: Diarrhea Disposition: 01 HOME, SELF-CARE Condition: Stable Departure-Patient Inst. Decision time for Depature: 16:42 Referrals: MICHAEL GONZLAEZ DO (PCP/Family) Primary Care Physician Patient Instructions: Diarrhea, Adult ED Scripts Ondansetron (Ondansetron Odt) 4 Mg Tab.rapdis 4 MG SL Q4H PRN for NAUSEA/VOMITING, #6 TAB Prov: SEDA JONES 03/12/23 SEDA JONES Mar 12, 2023 14:58
[2023-03-12] MEDS ORDERED: ONDANSETRON 4 MG/2 ML (SDV) Z0FRAN IVP ONE (15:00)
[2023-03-12 15:05] LABS: BASOPHILS % (AUTO) 0 % (0-10); EOSINOPHILS # (AUTO) 0.1 10^3/uL (0.0-0.3); EOSINOPHILS % (AUTO) 1 % (0-10); HEMATOCRIT 45 % (35-52); HEMOGLOBIN 15.1 g/dL (11.5-16.0); LYMPHOCYTES # (AUTO) 2.4 10^3/uL (1.0-4.0); LYMPHOCYTES % (AUTO) 19 % (12-44); MEAN CORPUSCULAR HEMOGLOBIN 31 pg (25-34); MEAN CORPUSCULAR HGB CONC 34 g/dL (32-36); MEAN CORPUSCULAR VOLUME 91 fL (80-99); MEAN PLATELET VOLUME 9.3 fL (9.0-12.2); MONOCYTES # (AUTO) 0.7 10^3/uL (0.0-1.0); MONOCYTES % (AUTO) 6 % (0-12); NEUTROPHILS # (AUTO) 9.2 10^3/uL (1.8-7.8); NEUTROPHILS % (AUTO) 74 % (42-75); PLATELET COUNT 366 10^3/uL (130-400); WHITE BLOOD COUNT 12.5 10^3/uL (4.3-11.0)
[2023-03-12 15:27] LABS: ALBUMIN 3.8 GM/DL (3.2-4.5)
[2023-03-12 15:28] LABS: CHLORIDE 105 MMOL/L (98-107); POTASSIUM 3.8 MMOL/L (3.6-5.0); SODIUM 140 MMOL/L (135-145)
[2023-03-12 15:29] LABS: CALCIUM 9.2 MG/DL (8.5-10.1)
[2023-03-12 15:30] LABS: GLUCOSE 129 MG/DL (70-105); TOTAL PROTEIN 6.8 GM/DL (6.4-8.2)
[2023-03-12 15:31] LABS: CARBON DIOXIDE 24 MMOL/L (21-32)
[2023-03-12 15:32] LABS: BILIRUBIN,TOTAL 0.4 MG/DL (0.1-1.0)
[2023-03-12 15:33] LABS: ALKALINE PHOSPHATASE 117 U/L (40-136)
[2023-03-12 15:34] LABS: BILIRUBIN,URINE NEGATIVE (NEGATIVE); CLARITY,URINE CLOUDY; COLOR,URINE YELLOW; GLUCOSE, URINE (UA) NEGATIVE (NEGATIVE); KETONES,URINE NEGATIVE (NEGATIVE); LEUKOCYTE ESTERASE ,URINE TRACE (NEGATIVE); NITRITE,URINE NEGATIVE (NEGATIVE); PROTEIN,URINE NEGATIVE (NEGATIVE)
[2023-03-12 15:34] LABS: CREATININE SERUM 0.83 MG/DL (0.60-1.30); GFR ESTIMATED 81
[2023-03-12 15:35] LABS: BUN/CREATININE RATIO 17
[2023-03-12 15:36] LABS: ALANINE AMINOTRANSFERASE 18 U/L (0-55)
[2023-03-12 15:37] LABS: LIPASE 17 U/L (8-78)
[2023-03-12] MEDS ORDERED: HOLD METFORMIN - RECEIVED CONTRAST 20 ML VIAL IV SCH (15:45)
[2023-03-12] MEDS ORDERED: NS 100 ML (IVPB) BAG IV ONE (15:45)
[2023-03-12] MEDS ORDERED: IOHEXOL 350 MG/ML 100 ML (OMNIPAQUE 350) VIAL IV ONE (15:45)
[2023-03-12 15:47] LABS: AMORPHOUS SEDIMENT,UR MOD AMOR URATES /LPF; BACTERIA,URINE FEW /HPF; RBC,URINE 0-2 /HPF; SQUAMOUS EPITHELIAL CELL,UR 25-50 /HPF
--- NOTE | 2023-03-12 16:25 | Diagnostic Imaging Report ---
PROCEDURE: CT abdomen and pelvis with contrast. TECHNIQUE: Multiple contiguous axial images were obtained through the abdomen and pelvis after administration of intravenous contrast. Auto Exposure Controls were utilized during the CT exam to meet ALARA standards for radiation dose reduction. All CT scans use one or more of the following dose optimizing techniques: automated exposure control, MA and/or KvP adjustment based on patient size and exam type or iterative reconstruction. DATE: March 12, 2023. COMPARISON: None. INDICATION: 62-year-old female, epigastric pain, nausea, and diarrhea. FINDINGS: The visualized portions of the lung bases are clear. The heart is not enlarged. There is no pericardial effusion. The liver is unremarkable in size and contour. There is no identified liver lesion. The main, right, and left portal veins are patent. The gallbladder is unremarkable. There is no intrahepatic or extrahepatic bile duct dilation. The main pancreatic duct is not abnormally dilated. Unremarkable appearance of the pancreatic parenchyma. The spleen is normal in size. The adrenal glands are unremarkable. There is a 5 mm low-attenuation left renal lesion on axial image 71 which is too small to characterize. There is no identified renal or ureteral stone. The urinary collecting systems are not distended. The urinary bladder is unremarkable. The uterus is not seen and likely surgically absent. The intestinal tract is not distended. The appendix is unremarkable. There is no free intraperitoneal air. There is no drainable fluid collection. There is no free fluid in the abdomen or pelvis. There are atherosclerotic calcifications. There is no identified abnormally enlarged lymph node in the abdomen or pelvis which meets CT size criteria for adenopathy. There are multilevel degenerative changes of the spine. There is no identified acute bony abnormality. IMPRESSION: No identified acute abnormality in the abdomen or pelvis. Dictated by: Dictated on workstation # [id number]
[2023-03-12] MEDS ORDERED: ONDA4TAB11 SL (16:42)
[2023-03-12 16:46] VITALS: BP 111/74
== END 2023-03-12 17:00 | disposition home or self-care (01) ==
LOC: EDUNIT# 14:09 → ER 14:11
DX: R19.7 Diarrhea, unspecified (principal); R11.0 Nausea; R10.10 Upper abdominal pain, unspecified; M79.10 Myalgia, unspecified site; R10.13 Epigastric pain; Z87.19 Personal history of other diseases of the digestive system
CPT/HCPCS: 36415; 74177; 80053; 81000; 83690; 84484; 85025; 93005

== ENCOUNTER → 2023-10-02 | Outpatient (CLI) | payer OTHER ==
[~2023-10-02] MED LIST changes: +ONDA4TAB11 SL
--- NOTE | 2023-10-02 22:22 | Diagnostic Imaging Report ---
INDICATION: Routine screening. Comparison is made with prior mammogram from 08/31/2021 and 11/06/2019. 2-D and 3-D bilateral screening mammography was performed with CAD. Scattered fibroglandular densities are identified bilaterally. The parenchymal pattern is stable. No mass or malignant-appearing microcalcifications are identified. Axillae are unremarkable. IMPRESSION: No mammographic features suspicious for malignancy are identified. ACR BI-RADS Category 1: Negative. Result letter will be mailed to the patient. Note: At least 10% of breast cancer is not imaged by mammography. BI-RADS Category 1 Dictated on workstation # [id number]
== END ==
LOC: RAD 11:04
PROVIDERS: ATTEND Family Medicine
DX: Z12.31 Encounter for screening mammogram for malignant neoplasm of breast (principal); E11.9 Type 2 diabetes mellitus without complications; R01.1 Cardiac murmur, unspecified
CPT/HCPCS: 77063; 77067

== ENCOUNTER → 2023-10-24 | Outpatient (CLI) | payer OTHER | LOC: CARD 10:30 | PROVIDERS: ATTEND Family Medicine | DX: I51.7 Cardiomegaly (principal) | CPT/HCPCS: 93306 ==